=== PATIENT | female | born 1990 ===

== ENCOUNTER 2019-08-03 11:07 | Inpatient (IN) | payer OTHER ==
[~2019-08-03] VITALS: Ht 160 cm; Wt 74.0 kg
[2019-08-03 09:37] LABS: BASOPHILS ABSOLUTE AUTO 0.02 K/mm3 (0.00-0.23); BASOPHILS PERCENT AUTO 0 % (0-2); EOSINOPHILS ABSOLUTE AUTO 0.09 K/mm3 (0.00-0.68); EOSINOPHILS PERCENT AUTO 1 % (0-6); Hematocrit 34.9 % (33.0-51.0); Hemoglobin 11.6 g/dL (11.5-16.0); IMMATURE GRAN ABSOLUTE AUTO 0.05 K/mm3 (0.00-0.10); IMMATURE GRAN PERCENT AUTO 1 % (0-1); LYMPHOCYTES PERCENT AUTO 14 % (21-46); MONOCYTES ABSOLUTE AUTO 0.33 K/mm3 (0.16-1.47); MONOCYTES PERCENT AUTO 4 % (4-13); Mean Corpuscular HGB 31.7 pg (26.0-34.0); Mean Corpuscular HGB Conc 33.2 g/dL (31.5-36.5); Mean Corpuscular Volume 95 fL (80-100); Mean Platelet Volume 10.2 fL (9.1-12.4); NEUTROPHILS ABSOLUTE AUTO 7.44 K/mm3 (1.96-9.15); NEUTROPHILS PERCENT AUTO 81 % (41-73); Platelet Count 247 K/mm3 (150-400); RDW Coefficient Variation 12.3 % (11.7-14.2); RDW Standard Deviation 42.9 fL (35.1-46.3); Red Blood Cell Count 3.66 M/mm3 (3.80-5.20); White Blood Cell Count 9.23 K/mm3 (4.00-11.30)
[~2019-08-03 11:07] MED LIST: PRENATAL TABLE1 EAC2 PO
--- NOTE | 2019-08-05 07:18 | NUR ---
ASSUMED CAR, PT VERY NERVOUS. HAS GOOD ARMENIAN, BUT REQUESTS TO SLOW DOEN WHEN SPEAKING TO HELP. HER MOY AT SIDE, VERY HELPFUL.
[2019-08-05 08:11] LABS: PCO2 Cord - Arterial 54.1 mmHg (40-50); pH Cord - Arterial 7.31 (7.28-7.35)
[2019-08-05 08:12] LABS: PO2 Cord - Arterial < 13 mmHg (16-20)
[2019-08-05 08:15] LABS: PCO2 Cord - Venous 38.8 mmHg (40-50); PO2 Cord - Venous 35.1 mmHg (28-32); pH Umbilical Cord - Venous 7.41 (7.26-7.35)
--- NOTE | 2019-08-05 09:45 | NUR ---
BACK TO ROOM, PT DOING WELL. MOY AT SIDE, VERY HELPFUL. PAIN CONTROLLED WITH ORAL MEDS AT THIS TIME.
[2019-08-06 05:10] LABS: BASOPHILS ABSOLUTE AUTO 0.03 K/mm3 (0.00-0.23); BASOPHILS PERCENT AUTO 0 % (0-2); EOSINOPHILS ABSOLUTE AUTO 0.13 K/mm3 (0.00-0.68); EOSINOPHILS PERCENT AUTO 1 % (0-6); Hematocrit 29.2 % (33.0-51.0); Hemoglobin 9.5 g/dL (11.5-16.0); IMMATURE GRAN ABSOLUTE AUTO 0.04 K/mm3 (0.00-0.10); IMMATURE GRAN PERCENT AUTO 0 % (0-1); LYMPHOCYTES ABSOLUTE AUTO 0.81 K/mm3 (0.84-5.20); LYMPHOCYTES PERCENT AUTO 7 % (21-46); MONOCYTES PERCENT AUTO 5 % (4-13); Mean Corpuscular HGB 31.7 pg (26.0-34.0); Mean Corpuscular HGB Conc 32.5 g/dL (31.5-36.5); Mean Corpuscular Volume 97 fL (80-100); Mean Platelet Volume 10.2 fL (9.1-12.4); NEUTROPHILS ABSOLUTE AUTO 9.52 K/mm3 (1.96-9.15); NEUTROPHILS PERCENT AUTO 85 % (41-73); Platelet Count 197 K/mm3 (150-400); RDW Coefficient Variation 12.7 % (11.7-14.2); RDW Standard Deviation 44.9 fL (35.1-46.3); White Blood Cell Count 11.13 K/mm3 (4.00-11.30)
--- NOTE | 2019-08-06 11:05 | NUR ---
up to brp, void and stool. kirti ambulating well
[2019-08-06] MEDS ORDERED: Percocet 5-3251 EACH (11:56)
[2019-08-06] MEDS ORDERED: IBUP800 (11:56)
--- NOTE | 2019-08-06 14:20 | NUR ---
08/06/19 1420 Sydney Cruz NOT DOCUMENTED BY OR STAFF - LATE ENTRY 08/06/19
--- NOTE | 2019-08-06 21:18 | NUR ---
REASSESSED PT FOR HEADACHE, NUMBNESS AND TINGLING AFTER BEING MEDICATED FOR PAIN. PATIENT STATES SHE NO LONGER HAS HEADACHE AND HAS NO FEELINGS OF NUMBNESS OR TINGLING
[2019-08-07 10:35] LABS: Hematocrit 32.5 % (33.0-51.0); Hemoglobin 10.7 g/dL (11.5-16.0); Mean Corpuscular HGB 32.1 pg (26.0-34.0); Mean Corpuscular HGB Conc 32.9 g/dL (31.5-36.5); Mean Corpuscular Volume 98 fL (80-100); Mean Platelet Volume 9.8 fL (9.1-12.4); Platelet Count 251 K/mm3 (150-400); RDW Coefficient Variation 12.6 % (11.7-14.2); RDW Standard Deviation 45.1 fL (35.1-46.3); Red Blood Cell Count 3.33 M/mm3 (3.80-5.20); White Blood Cell Count 10.33 K/mm3 (4.00-11.30)
== END 2019-08-07 12:40 | disposition home or self-care (01) | DRG 788 ==
LOC: BC 08-05 06:25
PROVIDERS: Advanced Practice Midwife; ADMIT Obstetrics & Gynecology
PROC: 10D00Z1 Extraction of Products of Conception, Low, Open Approach (ICD-10-PCS; principal; 2019-08-05 07:30)
DX: O32.1XX0 Maternal care for breech presentation, not applicable or unspecified (principal); Z37.0 Single live birth; Z3A.39 39 weeks gestation of pregnancy; O90.81 Anemia of the puerperium; D64.9 Anemia, unspecified
CPT/HCPCS: 36415; 82803; 85025; 85027; 86850; 86900; 86901; J0690; J1885; J2590; J2765; J3010; J7120